=== PATIENT | male | born 1995 | race Caucasian/White ===

== ENCOUNTER 2016-08-15 11:43 | Emergency (ER) | payer MEDICAID ==
[~2016-08-15] VITALS: Wt 108.3 kg
[2016-08-15] MEDS ORDERED: ONDANSETRON 4 MG INJ IV STA (12:59)
[2016-08-15] MEDS ORDERED: morphine 4 MG/ML VIAL IV STA (12:59)
[2016-08-15] MEDS ORDERED: SOD CHLORIDE 0.9% 1,000 ML IV STA (12:59)
--- NOTE | 2016-08-15 13:06 | ERD ---
ER Documentation Chief Complaint Date/Time DATE: 08/15/16 TIME: 13:01 Chief Complaint RLQ ABD PAIN FOR 2 DAYS. NO NAUSE NO VOMITING. NO DIARRHEA HPI 21-year-old otherwise healthy male presents to the emergency department complaining of right lower quadrant abdominal pain times the past 2 days with associated fever and chills. Patient rates his current abdominal pain as a constant 4 out of 10 that ranges to a 7 out of 10 intermittently. Patient attempted to treat the pain with Motrin last night with adequate relief. Patient denies any exacerbating factors and states the pain does not worsen after eating. Patient's last bowel movement was this morning and normal for him. Patient denies any hematuria or blood in the stool. Patient denies any nausea or vomiting and has never undergone an abdominal surgery in the past. ROS All systems reviewed and are negative except as per history of present illness. Medications Home Meds No Active Prescriptions or Reported Meds Allergies Allergies: Coded Allergies: No Known Drug Allergies (Verified Allergy, 09/07/12) PMhx/Soc History of Surgery: No Anesthesia Reaction: No Hx Neurological Disorder: No Hx Respiratory Disorders: No Hx Cardiac Disorders: No Hx Psychiatric Problems: No Hx Miscellaneous Medical Probl: No Hx Alcohol Use: No Hx Substance Use: No Hx Tobacco Use: No Physical Exam Vitals Vital Signs Date Time Temp Pulse Resp B/P Pulse Ox O2 Delivery O2 Flow Rate FiO2 08/15/16 11:52 98.3 79 21 137/76 98 Physical Exam Const: Well-developed, well-nourished, nontoxic-appearing, in no acute distress Head: Atraumatic Eyes: Normal Conjunctiva Neck: Full range of motion..~ No meningismus. Resp: Clear to auscultation bilaterally Cardio: Regular rate and rhythm, no murmurs Abd: Soft, non tender, non distended. Normal bowel sounds. No peritoneal sign. No rebound tenderness. No right lower quadrant tenderness. Negative McBurney's point tenderness. Negative Velasco sign. No evidence of rash, swelling, or ecchymosis. Skin: No petechiae or rashes Back: No midline or flank tenderness Ext: No cyanosis, or edema Neur: Awake and alert Psych: Normal Mood and Affect Result Diagram: 08/15/16 1320 08/15/16 1320 Results 24 hrs Laboratory Tests Test 08/15/16 13:20 Alanine Aminotransferase (ALT/SGPT) 124IU/L Albumin 4.9g/dl Albumin/Globulin Ratio 1.32 Alkaline Phosphatase 77IU/L Anion Gap 18 Aspartate Amino Transf (AST/SGOT) 81IU/L Basophils # 0.110^3/ul Basophils % 0.8% Blood Urea Nitrogen 12mg/dl Calcium Level 9.7mg/dl Carbon Dioxide Level 28mmol/L Chloride Level 104mmol/L Creatinine 0.76mg/dl Direct Bilirubin 0.00mg/dl Eosinophils # 0.110^3/ul Eosinophils % 1.5% Globulin 3.70g/dl Glucose Level 118mg/dl Hematocrit 47.9% Hemoglobin 15.7g/dl Indirect Bilirubin 0.7mg/dl Lipase 51U/L Lymphocytes # 2.410^3/ul Lymphocytes % 26.8% Mean Corpuscular Hemoglobin 29.5pg Mean Corpuscular Hemoglobin Concent 32.8g/dl Mean Corpuscular Volume 90.0fl Mean Platelet Volume 11.1fl Monocytes # 0.710^3/ul Monocytes % 7.9% Neutrophils # 5.510^3/ul Neutrophils % 62.7% Nucleated Red Blood Cells # 0.010^3/ul Nucleated Red Blood Cells % 0.0/100WBC Platelet Count 11162^3/UL Potassium Level 4.2mmol/L Red Blood Count 5.3210^6/ul Red Cell Distribution Width 13.2% Sodium Level 146mmol/L Total Bilirubin 0.7mg/dl Total Protein 8.6g/dl White Blood Count 8.810^3/ul Current Medications Medications (Trade) Dose Ordered Sig/Andrzej Route PRN Reason Start Time Stop Time Status Last Admin Dose Admin Sodium Chloride (NS) 1,000 ml @ 1,000 mls/hr Q1H STAT IV 08/15/16 12:59 08/15/16 13:58 DC 08/15/16 13:22 Morphine Sulfate (morphine) 4 mg ONCE STAT IV 08/15/16 12:59 08/15/16 13:01 DC 08/15/16 13:22 Ondansetron HCl (Zofran Inj) 4 mg ONCE STAT IV 08/15/16 12:59 08/15/16 13:01 DC 08/15/16 13:22 Procedures/[facility] PROCEDURE: CT Abdomen and Pelvis without intravenous contrast. CLINICAL INDICATION: Abdominal pain . TECHNIQUE: CT scan of the abdomen and pelvis without intravenous contrast was performed on a multi-slice CT scanner. Coronal and sagittal reformatted images were obtained from the axial source images. Images were reviewed on a high- resolution PACS workstation. Total DLP = 973.6 mGy-cm. CTDIvol = 15.3 mGy. One or more of the following dose reduction techniques were used: Automated exposure control. Adjustment of the mA and/or kV according to patient size. Use of iterative reconstruction technique. COMPARISON: None. FINDINGS: CT abdomen and pelvis: The lung bases are clear. The heart size is normal in size. The liver is normal in size and diffusely fatty in density without focal mass or intrahepatic biliary dilatation. The spleen is normal in size and homogeneous in density. The pancreas as visualized is normal. The gallbladder shows no evidence of stones or distension . The adrenal glands are normal. The kidneys are symmetrically unremarkable. No urolithiasis, obstructive uropathy, or solid mass lesion is seen. The stomach is partially collapsed, but is grossly unremarkable. The small bowels are unremarkable. The colon and rectum are normal. There is no evidence of appendicitis or diverticulitis. The pelvic organs are normal. The bladder is normal. There are a few prominent right lower quadrant mesenteric lymph nodes. There is no abdominal or pelvic free fluid, free air, mass or mesenteric inflammation. The aorta is normal in caliber and course. The osseous structures are intact. No osteolytic or osteoblastic lesions are identified. The soft tissues are within normal limits. Lack of IV and oral contrast limits sensitivity of exam. IMPRESSION: 1. Hepatic steatosis. 2. Mild right lower quadrant mesenteric adenitis. 3. Otherwise unremarkable noncontrast CT abdomen and pelvis without acute pathology identified. RPTAT: GG .Girma Granados MD, MD Date Time Electronically viewed and signed by .Girma Granados MD, on 08/15/2016 14:05 .L/ CC: TROY FISHER PA-C MDM: This is a 21-year-old male who presents with right lower quadrant pain 2 days with associated fever and chills. Vital signs were reviewed. Patient is afebrile. Patient is not hypoxic. Patient is normotensive and non-tachycardic. Abdominal exam was normal no evidence of right lower quadrant tenderness to palpation or rebound tenderness. Patient is well-appearing, nontoxic, and in no acute distress. Patient reports a normal bowel movement this a.m. Patient' s pain well controlled in the emergency department. She denies any prior surgeries. CBC showed no evidence of systemic infection or severe anemia. CMP showed no evidence of electrolyte abnormalities, severe acidosis, alkalosis , renal failure, or liver disease. Lipase showed no evidence of acute pancreatitis. UA showed no evidence of acute infection or hematuria. CT demonstrated hepatic cyst steatosis and mild mesenteric adenitis. Appendix was visualized on the CAT scan and appeared normal. Given these findings, the patients presentation is most consistent with mild right lower quadrant mesenteric adenitis as seen on CT scan. I have a low suspicion for acute appendicitis, intestinal ischemia, inguinal hernia, testicular torsion, abdominal aortic aneurysm, renal calculi, or sepsis. Patient will be provided with outpatient regimen for symptomatic relief. Based on patient's history of present illness and physical examination the decision was made to discharge. The patient was re-evaluated after ED treatment and stabilizing measures, and symptoms have improved. There is no evidence of life threatening injuries or illnesses at this time. On re-examination, patient resting in no distress, stable vital signs, reports feeling better and safe for discharge with outpatient follow up with PMD in 1-2 days. Patient given return precautions. TROY FISHER PA-C Aug 15, 2016 13:06
[2016-08-15 13:32] LABS: ADD SCAN DIFF NO
[2016-08-15 13:35] LABS: BASOPHIL # 0.1 10^3/ul (0.0-0.1); BASOPHILS % 0.8 % (0.0-2.0); EOSINOPHILS # 0.1 10^3/ul (0.0-0.5); EOSINOPHILS % 1.5 % (0.0-7.0); HEMATOCRIT 47.9 % (42.0-52.0); HEMOGLOBIN 15.7 g/dl (14.0-18.0); LYMPHOCYTES # 2.4 10^3/ul (0.8-2.9); LYMPHOCYTES % 26.8 % (15.0-51.0); MEAN CORPUSCULAR HEMOGLOBIN 29.5 pg (29.0-33.0); MEAN CORPUSCULAR HGB CONC 32.8 g/dl (32.0-37.0); MEAN PLATELET VOLUME 11.1 fl (7.4-10.4); MONOCYTE # 0.7 10^3/ul (0.3-0.9); MONOCYTES % 7.9 % (0.0-11.0); NEUTROPHIL # 5.5 10^3/ul (1.6-7.5); NEUTROPHILS % 62.7 % (39.0-77.0); PLATELET COUNT 254 10^3/UL (140-415); RED BLOOD COUNT 5.32 10^6/ul (4.70-6.10); RED CELL DISTRIBUTION WIDTH 13.2 % (11.5-14.5); WHITE BLOOD COUNT 8.8 10^3/ul (4.8-10.8)
[2016-08-15 13:54] LABS: ALBUMIN 4.9 g/dl (3.3-4.9); POTASSIUM 4.2 mmol/L (3.5-5.1)
[2016-08-15 13:56] LABS: BILIRUBIN,INDIRECT 0.7 mg/dl (0-1.1); BILIRUBIN,TOTAL 0.7 mg/dl (0.2-1.3); CREATININE 0.76 mg/dl (0.61-1.24)
[2016-08-15 13:57] LABS: ALBUMIN/GLOBULIN RATIO 1.32; CALCIUM 9.7 mg/dl (8.4-10.2); TOTAL PROTEIN 8.6 g/dl (6.1-8.1)
--- NOTE | 2016-08-15 14:05 | RADRPT ---
PROCEDURE: CT Abdomen and Pelvis without intravenous contrast. CLINICAL INDICATION: Abdominal pain . TECHNIQUE: CT scan of the abdomen and pelvis without intravenous contrast was performed on a multi -slice CT scanner. Coronal and sagittal reformatted images were obtained from the axial source image s. Images were reviewed on a high-resolution PACS workstation. Total DLP = 973.6 mGy-cm. CTDIvol = 15.3 mGy. One or more of the following dose reduction techniques were used: Automated exposure control. Adjustment of the mA and/or kV according to patient size. Use of iterative reconstruction technique. COMPARISON: None. FINDINGS: CT abdomen and pelvis: The lung bases are clear. The heart size is normal in size. The liver is normal in size and diffus reuben fatty in density without focal mass or intrahepatic biliary dilatation. The spleen is normal in size and homogeneous in density. The pancreas as visualized is normal. The gallbladder shows no evidence of stones or distension . The adrenal glands are normal. The kidneys are symmetrically u nremarkable. No urolithiasis, obstructive uropathy, or solid mass lesion is seen. The stomach is partially collapsed, but is grossly unremarkable. The small bowels are unremarkable. The colon and rectum are normal. There is no evidence of appendicitis or diverticulitis. The pelvi c organs are normal. The bladder is normal. There are a few prominent right lower quadrant mesenteri c lymph nodes. There is no abdominal or pelvic free fluid, free air, mass or mesenteric inflammatio n. The aorta is normal in caliber and course. The osseous structures are intact. No osteolytic or osteo blastic lesions are identified. The soft tissues are within normal limits. Lack of IV and oral con trast limits sensitivity of exam. IMPRESSION: 1. Hepatic steatosis. 2. Mild right lower quadrant mesenteric adenitis. 3. Otherwise unremarkable noncontrast CT abdomen and pelvis without acute pathology identified. RPTAT: GG .Girma Granados MD, Date Time Electronically viewed and signed by .Girma Granados MD, MD on 08/15/2016 14:05 .L/
[2016-08-15 14:25] LABS: ADD UMIC NO; URINE BILIRUBIN (Dip) NEGATIVE (NEGATIVE); URINE BLOOD (Dip) NEGATIVE (NEGATIVE); URINE COLOR LT. YELLOW (YELLOW); URINE GLUCOSE (Dip) NEGATIVE (NEGATIVE); URINE KETONES (Dip) NEGATIVE (NEGATIVE); URINE LEUKOCYTE ESTERASE (Dip) NEGATIVE (NEGATIVE); URINE NITRITE (Dip) NEGATIVE (NEGATIVE); URINE TOTAL PROTEIN (Dip) NEGATIVE (NEGATIVE); URINE UROBILINOGEN (Dip) 0.2 E.U./dL (0.1-1.0)
[2016-08-15] MEDS ORDERED: ONDA4TAB14 PO (14:32)
[2016-08-15] MEDS ORDERED: IBUP-1542 PO (14:32)
[2016-08-15] MEDS ORDERED: HYDR-906 PO (14:32)
== END 2016-08-15 15:18 | disposition home or self-care (01) ==
LOC: FTE 11:43
DX: R10.31 Right lower quadrant pain (principal); K76.0 Fatty (change of) liver, not elsewhere classified
CPT/HCPCS: 36415; 74176; 80053; 81003; 83690; 85025; 96374; 96375; J2270; J2405; J7030; Z7502